=== PATIENT | male | born 1995 | race African-American/Black ===

== ENCOUNTER 2017-11-10 21:12 | Emergency (ER) | payer MEDICAID ==
[~2017-11-10] VITALS: Ht 188 cm; Wt 80.0 kg
[2017-11-11] MEDS ORDERED: SODIUM CHLORIDE 0.9% 1,000 ML IV ONE (00:04)
[2017-11-11] MEDS ORDERED: ONDANSETRON HCL 4MG/2ML VIAL IV STA (00:04)
[2017-11-11] MEDS ORDERED: ONDANSETRON 4MG ODT PO STA (00:28)
[2017-11-11] MEDS ORDERED: VISCOUS LIDOCAINE 2% 15 ML UDC PO STA (00:28)
[2017-11-11] MEDS ORDERED: MAGNESIUM/ALUMINUM HYDROXIDE/SIMETHICONE 30ML UDC PO STA (00:28)
[2017-11-11] MEDS ORDERED: PANTOPRAZOLE SODIUM 40 MG/VIAL IV ONE (00:30)
[2017-11-11 00:42] LABS: CHLORIDE 103 mEq/L (98-107)
[2017-11-11 00:43] LABS: BASOPHILS % 0.5 % (0.0-2.0); EOSINOPHILS % 0.1 % (0.0-5.0); HEMATOCRIT. 49.1 % (42.0-52.0); LYMPHOCYTES % 9.3 % (20.0-50.0); MEAN CORPUSCULAR HEMOGLOBIN 31.1 pg (28.0-32.0); MEAN CORPUSCULAR VOLUME 89.7 fL (80.0-94.0); MEAN PLATELET VOLUME 8.8 fl (7.4-10.4); MONOCYTES % 8.7 % (2.0-8.0); NEUTROPHILS % 81.4 % (40.0-76.0); PLATELET 251 x1000/uL (130-400); RED BLOOD CELL COUNT 5.47 mill/uL (4.7-6.1); RED CELL DISTRIBUTION WIDTH 13.3 % (11.6-14.6)
[2017-11-11 00:47] LABS: ETHANOL BLOOD < 10 mg/dL
[2017-11-11] MEDS ORDERED: POTASSIUM CHLORIDE 20MEQ TABLET SR PO SCH (01:15)
[2017-11-11] MEDS ORDERED: KETOROLAC 30MG/ML VIAL IV SCH (03:45)
[2017-11-11] MEDS ORDERED: ONDANSETRON HCL 4MG/2ML VIAL IV SCH (04:00)
[2017-11-11 05:15] VITALS: BP 145/65
== END 2017-11-11 05:49 | disposition home or self-care (01) ==
LOC: ER 21:12
DX: R10.13 Epigastric pain (principal); R11.2 Nausea with vomiting, unspecified
CPT/HCPCS: 36415; 71045; 74176; 80053; 83690; 85025; 96361; 96374; 96375; 96376; 99285; C9113; G0482; J1885; J2405; J7030; Q0162; Z7610